=== PATIENT | female | born 1935 | race Caucasian/White ===

== ENCOUNTER 2017-05-04 15:24 | Inpatient (IN) | payer OTHER ==
--- NOTE | 2017-05-04 16:03 | EDPHY ---
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 The patient's symptoms began after she tumbled while weeding at home. The patient did not strike her head or lose consciousness. She has no complaints neck pain, back pain, chest pain or difficulty breathing. The patient denies any focal numbness or weakness. The patient denies any acute abdominal pain. The patient is not anticoagulated. The patient has moderate to severe pain with movement. REVIEW OF SYSTEMS: A comprehensive 10 point review of systems is otherwise negative aside from elements mentioned in the history of present illness. Source: Patient - Personal History Current Tetanus/Diphtheria Vaccine: Unsure Current Tetanus Diphtheria and Acellular Pertussis (TDAP): Unsure - Medical/Surgical History Hx Asthma: No Hx Chronic Respiratory Disease: No Hx Diabetes: No Hx Cardiac Disease: No Hx Renal Disease: No Hx Cirrhosis: No Hx Alcoholism: No Hx HIV/AIDS: No Hx Splenectomy or Spleen Trauma: No Other PMH: hyperlipidemia. hypothyroid - Social History Smoking Status: Never smoked - Physical Exam Exam: General Appearance: Alert, moderate discomfort secondary to pain Head: Atraumatic Eyes: Pupils equal, round, reactive ENT, Mouth: No hemotympanum, no oral trauma Neck: Nontender, trachea midline Respiratory: No chest wall tender, subcutaneous air, lungs clear bilaterally Cardiovascular: Regular rate and rhythm Abdomen: Abdomen is soft and nontender, pelvis stable Skin: No lacerations, No abrasion Back: No midline T/L/S pain Extremities: Tenderness to palpation right elbow, right wrist right shoulder Neurological: A&Ox3, normal motor function, normal sensory exam Constitutional: Initial Vital Signs Temperature (C) 36.5 C 05/04/17 15:31 Heart Rate 81 05/04/17 15:31 Respiratory Rate 16 05/04/17 15:31 Blood Pressure 130/68 H 05/04/17 15:31 O2 Sat (%) 96 05/04/17 15:31 O2 Delivery Mode Room Air Allergies/Adverse Reactions: No Known Allergies Allergy (Unverified 05/04/17 15:30) Home Medications: Medication Instructions Recorded Levothyroxine [Synthroid 50 mcg 50 mcg PO DAILY06 05/04/17 (*)] Lisinopril [Zestril 30 mg] 30 mg PO DAILY 05/04/17 Simvastatin 40 mg PO HS 05/04/17 Vitamin B Complex [B Complex] 1 each PO DAILY@12 05/04/17 Medical Decision Making - Diagnostics Imaging Results: Imaging Impressions Elbow X-Ray 05/04/17 15:58 Impression: 1. Suspicious of a slight impaction type fracture involving the lateral aspect of the radial head-neck junction. Clinical correlation and follow-up are suggested. 2. Bone demineralization. Wrist X-Ray 05/04/17 15:58 Impression: Acute Colles' fracture of the distal radius with ulnar styloid fracture, and diffuse bone demineralization. Shoulder X-Ray 05/04/17 15:59 Impression: Acute fracture involving the surgical neck of the proximal right humerus. Wrist X-Ray 05/04/17 17:22 Impression: Status post closed reduction with significant improvement in alignment of the distal radial Colles' fracture, compared to 4:27 PM today. Procedures: Procedure fracture reduction DISTAL RADIUS/ULNA FRACTURE REDUCTION Procedure: Reduction of Angulated Displaced distal radius and ulna fracture. Time-out completed immediately before the procedure. IV established. O2 administered. Neurovascular exam intact pre-procedure. Given a hematoma block and IV fentanyl for analgesia. The right distal radius and ulna fracture was reduced using traction and dorsal pressurevolar pressure.Reassessed post- procedure. Neurovascular status intact-Normal Motor and sensory exam. Exam indicated reduction. Confirmed reduction on X-ray. Ortho glass sugar-tong splint applied by myself. The procedure was performed by myself, Jose Antonio Luna ED Course/Re-evaluation: The patient had an IV established. She received a total of 100 mcg of IV fentanyl for management of severe pain. The patient is noted to have a displaced surgical neck fracture of the right humerus, she has an impacted radial head fracture. She has a comminuted angulated distal radius and ulna fracture. The patient was verbally consented to undergo reduction of the distal radius ulna fracture by myself at 5:24 p.m.. This was performed after she received hematoma block. The patient did have improvement her distal radius fracture. The patient required additional IV narcotics for pain management. She will require admission to the hospital for ongoing pain management. She currently is having moderate to severe pain. She continues to be neurologically intact. Consultation was made with Dr. Lane from Orthopedic surgery. He will see the patient in orthopedic consultation. Consultation was made with Dr. Reina Whitehead from the hospitalist service who will admit the patient. 6:00 p.m.: Patient will be transferred to the medical-surgical floor for further care. Differential Diagnosis: Differential diagnosis considered includes fracture, sprain, dislocation, neurovascular injury - Data Points Medications Given: Discontinued Medications Fentanyl (Sublimaze) 50 mcg IVP EDNOW ONE Stop: 05/04/17 16:11 Last Admin: 05/04/17 16:28 Dose: 50 mcg Fentanyl (Sublimaze) 50 mcg IVP EDNOW ONE Stop: 05/04/17 16:29 Last Admin: 05/04/17 16:00 Dose: 50 mcg Morphine Sulfate (Morphine) 4 mg IVP EDNOW ONE Stop: 05/04/17 17:43 Last Admin: 05/04/17 17:45 Dose: 4 mg Ondansetron HCl (Zofran) 4 mg IVP ONCE ONE Stop: 05/04/17 17:43 Last Admin: 05/04/17 17:45 Dose: 4 mg Departure - Departure Disposition: [facility] Acute Clinical Impression: Distal radius fracture, right Qualifiers: Encounter type: initial encounter Fracture type: closed Fracture morphology: Colles' Qualified Code(s): S52.531A - Colles' fracture of right radius, initial encounter for closed fracture Comminuted right humeral fracture Qualifiers: Encounter type: initial encounter Humerus Location: shaft Fracture type: closed Fracture alignment: nondisplaced Qualified Code(s): S42.354A - Nondisplaced comminuted fracture of shaft of humerus, right arm, initial encounter for closed fracture Right radial head fracture Qualifiers: Encounter type: initial encounter Fracture type: closed Fracture alignment: nondisplaced Qualified Code(s): S52.124A - Nondisplaced fracture of head of right radius, initial encounter for closed fracture Condition: Good
[2017-05-04] MEDS ORDERED: fentaNYL 100 MCG/2 ML INJ IVP ONE ×2 (16:10→16:28)
[2017-05-04] MEDS ORDERED: ONDANSETRON 4 MG/2 ML VIAL IVP ONE (17:42)
[2017-05-04] MEDS ORDERED: ONDANSETRON 4 MG/2 ML VIAL ONE (17:43)
[2017-05-04] MEDS ORDERED: ACETAMINOPHEN 325 MG TAB PO PRN (18:54)
[2017-05-04] MEDS ORDERED: diphenhydrAMINE 25 MG CAP PO PRN (18:54)
[2017-05-04] MEDS ORDERED: ONDANSETRON 4 MG/2 ML VIAL IVP PRN (18:54)
[2017-05-04] MEDS ORDERED: PROMETHAZINE HCL 25 MG/ML INJ IVP PRN (18:54)
[2017-05-04 19:42] LABS: % IMMATURE GRANULYOCYTES 0.4 % (0.0-1.1); ABSOLUTE IMMATURE GRANULOCYTES 0.03 10^3/uL (0.00-0.10); ADD DIFF? NO; ADD MORPH? NO; ADD SCAN? NO; ATYPICAL LYMPHOCYTE FLAG 10 (0-99); FRAGMENT RBC FLAG 0 (0-99); HEMATOCRIT 36.9 % (38.0-47.0); HEMOGLOBIN 12.3 g/dL (12.6-16.3); LEFT SHIFT FLG 0 (0-99); LIPEMIA HEMOLYSIS FLAG 80 (0-99); MEAN CELL HEMOGLOBIN CONCENTR. 33.3 g/dL (32.4-36.7); MEAN CELL VOLUME 92.9 fL (81.5-99.8); MEAN PLATELET VOLUME 10.8 fL (8.7-11.7); PLATELET CLUMPS FLAG 0 (0-99); PLATELET COUNT 179 10^3/uL (150-400); RED BLOOD CELL COUNT 3.97 10^6/uL (4.18-5.33); RED CELL DISTRIBUTION WIDTH 13.2 % (11.5-15.2)
[2017-05-04 19:51] LABS: APTT 23.2 SEC (23.0-38.0); INR 1.05 (0.83-1.16); PROTIME(PATIENT) 13.6 SEC (12.0-15.0)
--- NOTE | 2017-05-04 19:53 | PDGENHP ---
History and Physical - Chief Complaint fall/arm pain - History of Present Illness 81 yo F with PMH of HTN, HLD and hypothyroid presenting after a fall while gardening. She notes that she was leaning forward to pull out some weeds when she lost her balance and fell onto her right arm and had immediate shoulder, wrist and elbow pain. She did not hit her head or have any neck pain afterwards. She noted her wrist seemed to be pointing in the wrong direction from the rest of her arm. She is right handed. She had a prior injury to her left wrist that did not require surgery but took 5 months of PT to completely heal from. She has otherwise been well without any acute issues recently. History Information - Allergies/Home Medication List Allergies/Adverse Reactions: No Known Allergies Allergy (Unverified 05/04/17 15:30) Home Medications: Levothyroxine [Synthroid 50 mcg (*)] 50 mcg PO DAILY06 05/04/17 [Last Taken ] Lisinopril [Zestril 30 mg] 30 mg PO DAILY 05/04/17 [Last Taken 05/04/17] Simvastatin 40 mg PO HS 05/04/17 [Last Taken 05/03/17] Vitamin B Complex [B Complex] 1 each PO DAILY@12 05/04/17 [Last Taken 05/04/17] I have personally reviewed and updated: family history, medical history, social history, surgical history - Past Medical History hypertension, hyperlipidemia Additional medical history: hypothyroid. previous hyperparathyroid - Surgical History Reports: hysterectomy Additional surgical history: thyroid resection - Family History Positive for: non-pertinent - Social History Smoking Status: Never smoked Alcohol Use: None Drug Use: None Additional social history: , lives with her Review of Systems ROS: 10pt was reviewed & negative except for what was stated in HPI & below Physical Exam Temp Pulse Resp BP Pulse Ox 37.0 C 73 16 134/82 H 96 05/04/17 18:20 05/04/17 18:20 05/04/17 18:20 05/04/17 18:20 05/04/17 18:20 Constitutional: no apparent distress, appears nourished Eyes: PERRL Ears, Nose, Mouth, Throat: moist mucous membranes Cardiovascular: regular rate and rhythym, no murmur, rub, or gallop Respiratory: no respiratory distress, no rales or rhonchi Gastrointestinal: soft, non-tender abdomen Skin: warm, normal color Musculoskeletal: other (right arm in a cast and sling) Neurologic: AAOx3 Psychiatric: interacting appropriately, not anxious, not encephalopathic Lab Data & Imaging Review 05/04/17 16:05 05/04/17 16:05 WBC 7.75 10^3/uL (3.80-9.50) 05/04/17 16:05 RBC 3.97 10^6/uL (4.18-5.33) L 05/04/17 16:05 Hgb 12.3 g/dL (12.6-16.3) L 05/04/17 16:05 Hct 36.9 % (38.0-47.0) L 05/04/17 16:05 MCV 92.9 fL (81.5-99.8) 05/04/17 16:05 MCH 31.0 pg (27.9-34.1) 05/04/17 16:05 MCHC 33.3 g/dL (32.4-36.7) 05/04/17 16:05 RDW 13.2 % (11.5-15.2) 05/04/17 16:05 Plt Count 179 10^3/uL (150-400) 05/04/17 16:05 MPV 10.8 fL (8.7-11.7) 05/04/17 16:05 Neut % (Auto) 63.6 % (39.3-74.2) 05/04/17 16:05 Lymph % (Auto) 28.5 % (15.0-45.0) 05/04/17 16:05 [place] % (Auto) 4.8 % (4.5-13.0) 05/04/17 16:05 Eos % (Auto) 1.3 % (0.6-7.6) 05/04/17 16:05 Baso % (Auto) 1.4 % (0.3-1.7) 05/04/17 16:05 Nucleat RBC Rel Count 0.0 % (0.0-0.2) 05/04/17 16:05 Absolute Neuts (auto) 4.93 10^3/uL (1.70-6.50) 05/04/17 16:05 Absolute Lymphs (auto) 2.21 10^3/uL (1.00-3.00) 05/04/17 16:05 Absolute Monos (auto) 0.37 10^3/uL (0.30-0.80) 05/04/17 16:05 Absolute Eos (auto) 0.10 10^3/uL (0.03-0.40) 05/04/17 16:05 Absolute Basos (auto) 0.11 10^3/uL (0.02-0.10) H 05/04/17 16:05 Absolute Nucleated RBC 0.00 10^3/uL (0-0.01) 05/04/17 16:05 Immature Gran % 0.4 % (0.0-1.1) 05/04/17 16:05 Immature Gran # 0.03 10^3/uL (0.00-0.10) 05/04/17 16:05 Visualized and Interpreted imaging results: Yes Interpretation: wrist xray: colles fx angulated and displaced. shoulder xray: right proximal humeral fx involving surgical neck. elbow xray: ? impaction fx of radial head-neck jxn Assessment & Plan Assessment: Distal radius fracture, right (Acute) Comminuted right humeral fracture (Acute) Right radial head fracture (Acute) 81 yo F with PMH of htn, hld, hypothyroid pw right shoulder, wrist and ? elbow fxs s/p mechanical fall # right proximal humerus and ? right radial head-neck fx: currently patient in a sling and soft cast. Neurovascularly intact. Ortho consulted and have requested RUE CT. This is felt to be unlikely a surgical injury, however if CT differs from that impression is to be determined. Dr. Lane to see patient in am. # right angulated/displaced colle's fracture: s/p external reduction in ER, in cast now, f/u xray shows it to be reduced appropriately # HTN: continue op mgmt with lisinopril # hld: continue statin # hypothyroid: post surgical, continue synthroid # observation status, suspect she will require < 48 hours stay for eval/mgmt of above Patient new to my care. Old records reviewed and summarized as above. Care plan reviewed with ER doc including ortho consultation.
[2017-05-04 20:06] LABS: ANION GAP 10 mEq/L (8-16); CALCIUM 9.1 mg/dL (8.5-10.4); CARBON DIOXIDE 23 mEq/l (22-31); CHLORIDE 106 mEq/L (97-110); CREATININE 0.9 mg/dL (0.6-1.0); GLOMERULAR FILTRATION RATE > 60; GLUCOSE 151 mg/dL (70-100); SODIUM 139 mEq/L (134-144)
--- NOTE | 2017-05-04 21:59 | GCON ---
[f rep st] CONSULTATION DATE OF CONSULTATION: 05/04/2017 HISTORY OF PRESENT ILLNESS: This is a 81-year-old female who fell while gardening. She sustained a proximal humerus, nondisplaced radial head and displaced distal radius fracture. She was taken by EMS. Emergency room diagnosed the above injuries and admitted to the hospitalist service, and I was consulted to see her. She complained of shoulder and wrist and elbow pain, but no other pain. She was able to ambulate in the hospital. PAST MEDICAL HISTORY: Hypertension, hyperlipidemia. ALLERGIES: No known drug allergies. MEDICATIONS: Synthroid, lisinopril, simvastatin. SURGICAL HISTORY: Hysterectomy, and thyroid resection. FAMILY HISTORY: Reviewed and noncontributory. SOCIAL HISTORY: She is a nonsmoker. REVIEW OF SYSTEMS: 10-point review of systems performed, is otherwise negative. PHYSICAL EXAMINATION: VITAL SIGNS: Stable. GENERAL: She is conscious. She is alert, oriented, and appropriate. In no acute distress. HEAD: Atraumatic. EYES: Equal and reactive. NECK: Supple. FACE: Atraumatic. CARDIOVASCULAR : Regular rate and rhythm. RESPIRATORY: No distress. GASTROINTESTINAL: Her abdomen is soft. EXTREMITIES: Right upper extremity is in a sling and splinted. She is splinted at the wrist. She is able to move her fingers. She is quite swollen and sore in the shoulder. She has numbness in the axillary nerve distribution. She has tenderness about the elbow and hand. Her left upper extremity she moves well with no neurologic abnormalities, good strength. Lower extremities move well. There is no pain. No pain with hip rotation. IMAGING: Reviewed her plain films. She has displaced proximal humerus fracture , which is shortened and impacted. She has a displaced distal radius fracture which was improved on the postreduction x-rays; it was still dorsally angulated significantly. ASSESSMENT: 1. Right proximal humerus fracture. 2. Right distal radius fracture. 3. Nondisplaced right radial head fracture. PLAN: I discussed with her risks and benefits of operative intervention versus nonsurgical treatment. We would like for operative intervention based on her otherwise very good health, active lifestyle, and the displaced nature of her fractures for quick recovery and better long-term function. Will plan on ORIF of the right proximal humerus and the right distal radius. Will treat the radial head fracture nonoperatively. She will be put n.p.o. at midnight. Discussed surgical procedure details with her, including risks of nerve injury, nonunion, malunion, continued pain, wound problems. /[id number]/MODL MTDD
[2017-05-05] MEDS: oxyCODONE IR 5 MG TAB PO PRN ×5 (00:26→16:03)
[2017-05-05] MEDS: ONDANSETRON DISINTEGRATING 4 MG TAB PO PRN ×2 (00:27→04:11)
[2017-05-05] MEDS ORDERED: BUPIVACAINE/EPI 0.25% 30 ML SDV ONE ×2 (07:46→11:17)
[2017-05-05] MEDS ORDERED: POLYMYXIN B SULFATE 500,000 UNIT/10 ML SYR IRR ONE (07:46)
[2017-05-05] MEDS ORDERED: BACITRACIN 50,000 UNITS/10 ML SYR IRR ONE (07:47)
[2017-05-05] MEDS ORDERED: BUPIVACAINE 0.5% 30 ML SDV ONE (07:48)
[2017-05-05] MEDS ORDERED: ceFAZolin 2 GM/DEXTROSE 100 ML IV ONE (08:58)
[2017-05-05] MEDS ORDERED: NON-FORMULARY NEW DRUG (Lisinopril [Zestril 30 Mg] 30 MG) PO SCH (09:00)
[2017-05-05] MEDS ORDERED: ENOXAPARIN 40 MG/0.4 ML SYR SC SCH (09:00)
--- NOTE | 2017-05-05 09:01 | SOAPPROG ---
[facility] Progress Note Assessment/Plan: Assessment: R proximal humerus fracture R distal radius fracture Plan: ORIF of R proximal humerus fracture R distal radius fracture informed consent obtained 05/05/17 08:59 Subjective: pain in right arm Objective: Vital Signs Temp Pulse Resp BP Pulse Ox 37.0 C 88 16 141/76 H 93 05/05/17 07:41 05/05/17 07:41 05/05/17 07:41 05/05/17 07:41 05/05/17 07:41 05/04/17 05/05/17 05/06/17 05:59 05:59 05:59 Intake Total 0 Balance 0 PT 13.6 SEC (12.0-15.0) 05/04/17 16:05 INR 1.05 (0.83-1.16) 05/04/17 16:05 swelling in splint ICD10 Worksheet Patient Problems: Problems Problem Status Onset Comminuted right humeral fracture Acute Distal radius fracture, right Acute Right radial head fracture Acute
[2017-05-05] MEDS ORDERED: fentaNYL 100 MCG/2 ML INJ IVP PRN ×2 (09:09→12:32)
[2017-05-05] MEDS ORDERED: CEFAZOLIN 2 GM/DEXTROSE/100 ML BAG IV ONE (09:09)
[2017-05-05] MEDS ORDERED: fentaNYL 100 MCG/2 ML INJ ONE ×3 (09:10→12:27)
--- NOTE | 2017-05-05 09:50 | PDANEPAE ---
ANE History of Present Illness 81 year old with prox humerus fx, wrist fx right side ANE Past Medical History - Cardiovascular History Hx Hypertension: Yes - Pulmonary History Hx Oxygen in Use at Home: No - Endocrine History Hx Diabetes: No Hypothyroid: Yes ANE Review of Systems Review of systems is: negative ANE Patient History - Allergies Allergies/Adverse Reactions: No Known Allergies Allergy (Unverified 05/04/17 15:30) - Home Medications Home Medications: Levothyroxine [Synthroid 50 mcg (*)] 50 mcg PO DAILY06 05/04/17 [Last Taken ] Lisinopril [Zestril 30 mg] 30 mg PO DAILY 05/04/17 [Last Taken 05/04/17] Simvastatin 40 mg PO HS 05/04/17 [Last Taken 05/03/17] Vitamin B Complex [B Complex] 1 each PO DAILY@12 05/04/17 [Last Taken 05/04/17] - NPO status NPO Since - Liquids (Date): 05/05/17 NPO Since - Liquids (Time): 06:30 NPO Since - Solids (Date): 05/04/17 NPO Since - Solids (Time): 20:00 - Anes Hx Anes Hx: no prior problems - Smoking Hx Smoking Status: Never smoked - Alcohol Use Alcohol Use: None ANE Labs/Vital Signs - Labs Result Diagrams: 05/04/17 16:05 05/04/17 16:05 - Vital Signs Blood Pressure: 141/76 Heart Rate: 88 Respiratory Rate: 16 O2 Sat (%): 93 Height: 170.18 cm Weight: 68.039 kg ANE Physical Exam - Airway Neck exam: FROM Mallampati Score: Class 1 Mouth exam: normal dental/mouth exam - Pulmonary Pulmonary: no respiratory distress - Cardiovascular Cardiovascular: regular rate and rhythym - ASA Status ASA Status: II ANE Anesthesia Plan Anesthesia Plan: general endotracheal anesthesia
[2017-05-05] MEDS ORDERED: PROPOFOL 200 MG/20 ML VIAL ONE (10:02)
[2017-05-05] MEDS ORDERED: PHENYLEPHRINE HCL 100 MCG/ML SYR ONE (10:20)
[2017-05-05] MEDS ORDERED: NALOXONE HCL 0.4 MG/ML INJ IVP PRN (11:54)
[2017-05-05] MEDS ORDERED: VITAMIN B COMPLEX 1 EA CAP/TAB PO SCH (12:00)
--- NOTE | 2017-05-05 12:16 | POSTOPPROG ---
Post Op Note Date of Operation: 05/05/17 Surgeon: Jerry Lane Marine Consultant: Thai Anesthesiologist: Warm Anesthesia: GET(General Endotracheal) Pre-op Diagnosis: R prox humerus fx, distal radius fracture, radial head fracture Post-op Diagnosis: same Indication: above Procedure: ORIF R prox humerus, distal radius, closed treatment of radial head fractur Inf/Abcess present in the surg proc area at time of surgery?: No EBL: 50-100
[2017-05-05] MEDS ORDERED: HYDROmorphONE/DILAUDID 1 MG/ML SYR IVP PRN (12:33)
[2017-05-05] MEDS ORDERED: HYDROmorphONE/DILAUDID 2 MG/ML INJ ONE (12:37)
[2017-05-05] MEDS: VITAMIN B COMPLEX 1 EA CAP/TAB PO SCH (13:23)
[2017-05-05] MEDS: LISINOPRIL 20 MG TAB PO SCH (13:26)
--- NOTE | 2017-05-05 13:40 | HOSPPROG ---
Hospitalist Progress Note Assessment/Plan: Distal radius fracture, right (Acute) Comminuted right humeral fracture (Acute) Right radial head fracture (Acute) 81 yo F with PMH of htn, hld, hypothyroid pw right shoulder, wrist and ? elbow fxs s/p mechanical fall first encounter, chart reviewed. # right proximal humerus and ? right radial head-neck fx: To OR today # right angulated/displaced colle's fracture: s/p external reduction in ER # HTN: continue op mgmt with lisinopril # hld: continue statin # hypothyroid: post surgical, continue synthroid # Change to inpt status. Will need to be in hospital for further workup Subjective: Tired in the post op setting. Pain controlled. No issues. Objective: Vital Signs Temp Pulse Resp BP Pulse Ox 36.5 C 88 15 137/67 H 96 05/05/17 13:25 05/05/17 09:53 05/05/17 13:25 05/05/17 13:16 05/05/17 13:25 05/04/17 05/05/17 05/06/17 05:59 05:59 05:59 Intake Total 0 1250 Output Total 125 Balance 0 1125 PT 13.6 SEC (12.0-15.0) 05/04/17 16:05 INR 1.05 (0.83-1.16) 05/04/17 16:05 - Physical Exam Constitutional: no apparent distress, appears nourished, uncomfortable Eyes: PERRL, anicteric sclera, EOMI Ears, Nose, Mouth, Throat: moist mucous membranes, hearing normal, ears appear normal Cardiovascular: regular rate and rhythym, No JVD, No edema Respiratory: no respiratory distress, no rales or rhonchi, reduced air movement Gastrointestinal: No tenderness, No ascites, No guarding Skin: warm, normal color, No erythema Musculoskeletal: joint tenderness, pain with ROM, generalized weakness Psychiatric: interacting appropriately, not anxious, poor insight, poor judgement, poor memory ICD10 Worksheet Patient Problems: Problems Problem Status Onset Distal radius fracture, right Acute Comminuted right humeral fracture Acute Right radial head fracture Acute
[2017-05-05] MEDS ORDERED: traMADol 50 MG TAB PO PRN (14:01)
--- NOTE | 2017-05-05 14:36 | GOP ---
[f rep st] OPERATIVE REPORT DATE OF OPERATION: 05/05/2017 SURGEON: Jerry Lane MD GERIATRIC CARE MANAGER: Rafita Andre SA. ANESTHESIA: General. PREOPERATIVE DIAGNOSIS: 1. Right proximal humerus fracture, 3 part. 2. Right 2-part distal radius fracture. 3. Right nondisplaced radial head fracture. POSTOPERATIVE DIAGNOSIS: 1. Right proximal humerus fracture, 3 part. 2. Right 2-part distal radius fracture. 3. Right nondisplaced radial head fracture. PROCEDURE PERFORMED: 1. Open reduction and internal fixation, right 3-part proximal humerus fracture. Implants are Synt hes proximal humerus plate with locking and nonlocking screws. 2. Open reduction and internal fixation, right distal radius fracture. Implants are Synthes distal radius locking plate with locking and nonlocking screws. FINDINGS: SPECIMENS: None. ESTIMATED BLOOD LOSS: 200 mL total. INDICATIONS: This is a 81-year-old female who fell while gardening, sustaining the above-mentioned fractures, and she sustained a proximal humerus fracture, nondisplaced right radial head fracture, a nd distal radius displaced fracture. I obtained radiographic studies of these and counseled on the risks and benefits of operative intervention for these given her active lifestyle, the significant d isplacement of the fracture, the likelihood of further displacement of the distal radius given its u nstable nature, and she elected to proceed. We discussed risks of nerve injury, blood loss, pain, w ound problems, stiffness. She elected to proceed. Informed consent was obtained. All questions we re answered and marked preoperatively. DESCRIPTION OF PROCEDURE: She was taken to the operative suite. She was positioned in a beach christelle r. All bony prominences were padded. Sterilely prepped and draped in normal fashion. Time-out was performed, verifying site, side, location. All in agreement as a team. I made an incision over the anterior proximal humerus, performed deltopectoral approach to protect n eurovascular structures, working through this interval, and then mobilizing the deltoid. Exposed th e fracture site. Her fracture site was grossly shortened, impacted, and was severely angulated at a pproximately 70 degrees. She also had a greater tuberosity fracture. I was able to pull this out t o length with manual traction and manipulation of the fragments. Then I did place some greater tube rosity sutures in the rotator cuff to help reduce this as well. I placed a plate on this, used a co rtical screw to bring this to bone distally, then placed locking screws proximally, and then placed another cortical screw distally, achieving good fixation. I then tied the rotator cuff to the plate , took final x-rays showing good fixation, good alignment, stable construct, and that the screws wer e not in the joint, and took multiple views as well as did live fluoroscopy. The wound was thoroughly irrigated, closed with 0 Vicryl, 2-0 Vicryl, 3-0 Quill, and Dermabond. She was placed in a sterile dressing. I then repositioned the patient supine with her arm flat out and placed a tourniquet. Using Esmarch exsanguination, began the second portion of the case. Made an i ncision over the distal radius and over the FCR tendon, worked through the FCR tendon sheath, protec ting neurovascular structures. I elevated off the pronator quadratus and exposed the fracture site, which was grossly displaced and angulated. I manipulated this and obtained reduction. I was then able to place a plate on this and bring the plate with cortical screws in the shaft to the bone. I held the wrist in a flexed position in reduction, placed locking screws distally to hold this constr uct, and then placed a cortical screw proximally and another locking screw proximally to hold this a s a rigid construct. Took it through range of motion and this was stable. Fluoroscopic images obta ined, which showed good fixation and good plate placement. She was then closed with 2-0 Vicryl, 3-0 Quill, and Dermabond, placed in a splint. She was taken to PACU in stable condition. DRAINS: None. CONDITION: Stable. /[id number]/MODL
[2017-05-05] MEDS ORDERED: NON-FORMULARY NEW DRUG (Simvastatin [Simvastatin] 40 MG) PO SCH (21:00)
[2017-05-05] MEDS ORDERED: ATORVASTATIN CALCIUM 20 MG TAB PO SCH (21:00)
[2017-05-06] MEDS: oxyCODONE IR 5 MG TAB PO PRN ×2 (00:09→05:37)
[2017-05-06] MEDS: ONDANSETRON DISINTEGRATING 4 MG TAB PO PRN ×2 (00:09→05:37)
[2017-05-06] MEDS ORDERED: LEVOTHYROXINE 50 MCG TAB PO SCH (06:00)
--- NOTE | 2017-05-06 08:06 | SOAPPROG ---
[facility] Progress Note Assessment/Plan: Assessment: R proximal humerus fracture R distal radius fracture Plan: s/p ORIF of R proximal humerus fracture R distal radius fracture 1 lbs wt limit RUE stay in splint stay in dressing may get shoulder dressing wet d/c from my standpoint they have my card to make f/u appt on fir 05/06/17 08:05 Subjective: pain better Objective: Vital Signs Temp Pulse Resp BP Pulse Ox 37.0 C 81 18 110/53 L 96 05/06/17 04:00 05/06/17 04:00 05/06/17 04:00 05/06/17 04:00 05/06/17 04:00 05/05/17 05/06/17 05/07/17 05:59 05:59 05:59 Intake Total 850 Output Total 1000 Balance -150 PT 13.6 SEC (12.0-15.0) 05/04/17 16:05 INR 1.05 (0.83-1.16) 05/04/17 16:05 moving fingers well ICD10 Worksheet Patient Problems: Problems Problem Status Onset Comminuted right humeral fracture Acute Distal radius fracture, right Acute Right radial head fracture Acute
[2017-05-06 08:31] VITALS: RESP 16
--- NOTE | 2017-05-06 08:36 | HOSPPROG ---
Hospitalist Progress Note Assessment/Plan: 81 yo F with PMH of htn, hld, hypothyroid who had a mechanical fall and sustained a humerus and radial fx. Today is my first encounter w the patient/ chart reviewed. # right proximal humerus fx, distal radius fx, radial head fx -s/p ORIF right proximal humerus, distal radius #nausea having persistent nausea w pain meds will try another one to see if this helps # HTN: - lisinopril -bp 110/53 # hld: statin # hypothyroid: -Synthroid # dispo: will await input from PT and OT, trial of another medication for pain. Subjective: Savita is c/o some nausea during my evaluation. Objective: Vital Signs Temp Pulse Resp BP Pulse Ox 37.0 C 81 18 110/53 L 96 05/06/17 04:00 05/06/17 04:00 05/06/17 04:00 05/06/17 04:00 05/06/17 04:00 05/05/17 05/06/17 05/07/17 05:59 05:59 05:59 Intake Total 850 Output Total 1000 Balance -150 PT 13.6 SEC (12.0-15.0) 05/04/17 16:05 INR 1.05 (0.83-1.16) 05/04/17 16:05 - Physical Exam Constitutional: no apparent distress, appears nourished Eyes: PERRL Ears, Nose, Mouth, Throat: hearing normal Cardiovascular: regular rate and rhythym Respiratory: no respiratory distress Gastrointestinal: normoactive bowel sounds Skin: warm Musculoskeletal: muscular tenderness Neurologic: AAOx3 Psychiatric: interacting appropriately ICD10 Worksheet Patient Problems: Problems Problem Status Onset Comminuted right humeral fracture Acute Distal radius fracture, right Acute Right radial head fracture Acute
[2017-05-06] MEDS: LISINOPRIL 20 MG TAB PO SCH (09:41)
[2017-05-06] MEDS: HYDROCODONE/APAP 5/325 TAB PO PRN ×2 (10:37→15:15)
[2017-05-06 12:19] VITALS: BP 107/60; PULSE 91; TEMP 98.5; O2SAT 93
[2017-05-06] MEDS: VITAMIN B COMPLEX 1 EA CAP/TAB PO SCH (14:02)
--- NOTE | 2017-05-06 14:04 | PDIAF ---
- Diagnosis Diagnosis: right proximal humerus fx, distal radius fx s/p repair Code Status: Full Code - Medication Management Discharge Medications: Medications to Continue on Transfer Levothyroxine [Synthroid 50 mcg (*)] 50 mcg PO DAILY06 05/04/17 [Last Taken ] Lisinopril [Zestril 30 mg] 30 mg PO DAILY 05/04/17 [Last Taken 05/04/17] Simvastatin 40 mg PO HS 05/04/17 [Last Taken 05/03/17] Vitamin B Complex [B Complex] 1 each PO DAILY@12 05/04/17 [Last Taken 05/04/17] Hydrocodone/APAP 5/325 [[place] 5/325 (*)] 1 - 2 tab PO Q4HRS PRN #30 tab [Last Taken Unknown] Discharge Medications: Refer to the Discharge Home Medication list for PRN reason. - Orders Services needed: Physical Therapy, Occupational Therapy Diet Recommendation: no restrictions on diet Diet Texture: Regular Texture Diet Activity/Weight Bearing Restrictions: 1 lb weight limit to rue, stay in splint - Follow Up Care Current Providers and Referrals: Awa Dumont MD [Primary Care Provider] - As per Instructions Jerry Lane MD [Medical Doctor] - 3-5 days
--- NOTE | 2017-05-06 16:39 | GDS ---
[f rep st] DISCHARGE SUMMARY DISCHARGE DIAGNOSES: 1. Right proximal humerus fracture, distal radius fracture, and radial head fracture. 2. Nausea. 3. Hypertension. 4. Hyperlipidemia. 5. Hypothyroidism. CONSULTATIONS: During her stay: Dr. Jerry Lane. HISTORY OF PRESENT ILLNESS: Briefly, the patient is a 81-year-old female, who presented after falli ng while she was doing her gardening. She was leaning forward to pull some weeds out when she lost her balance, and fell onto her right arm, and had immediate shoulder, wrist, and elbow pain. She di d not hit her head. She was evaluated by Dr. Lane, and had surgery on May 05. She had an open reduction, internal fixation of the right three-part proximal humerus fracture. She also had an op en reduction, internal fixation of the right distal fracture. She tolerated the procedure well. To day, she has some ongoing nausea this morning due to pain medications. Her pain medications have be en changed, and she is doing markedly better. She will follow up with Dr. Lane in the outpatient setting. HOSPITAL COURSE: 1. Right proximal humerus fracture, distal radius fracture, and radial head fracture. She is statu s post ORIF, is doing well. 2. Nausea, resolved with changing her pain medications. 3. Hypertension, on lisinopril. 4. Hyperlipidemia, on statin therapy. 5. Hypothyroidism, on Synthroid. CONDITION AT DISCHARGE: VITAL SIGNS: Stable. Blood pressure is 110/53, O2 saturations on room air 96%, respiratory rate is 18, pulse is 81, temperature is 37 degrees Celsius. MEDICATIONS AT DISCHARGE: Please see the EMR. DISCHARGE INSTRUCTIONS: 1. To follow up with Dr. Lane. 2. A 1-pound weightbearing limit to her right upper extremity. 3. Do not drink or drive while on the pain medications. 4. She is to stay on stool softeners while she is on the pain medications. Greater than 30 minutes discharging and coordinating care. /[id number]/MODL
== END 2017-05-06 15:40 | disposition home health service (06) | DRG 493 ==
LOC: F3N 18:10 → OBSVTOIN 05-05 13:37
PROVIDERS: ADMIT Internal Medicine; ATTEND Internal Medicine
PROC: 0PSF04Z Reposition Right Humeral Shaft with Internal Fixation Device, Open Approach (ICD-10-PCS; principal; 2017-05-05 08:00)
PROC: 0PSH04Z Reposition Right Radius with Internal Fixation Device, Open Approach (ICD-10-PCS; principal; 2017-05-05 08:00)
PROC: 0PSKXZZ Reposition Right Ulna, External Approach (ICD-10-PCS; 2017-05-05 08:00)
PROC: 0PSHXZZ Reposition Right Radius, External Approach (ICD-10-PCS; 2017-05-05 08:00)
DX: S42.231A 3-part fracture of surgical neck of right humerus, initial encounter for closed fracture (principal); S52.531A Colles' fracture of right radius, initial encounter for closed fracture; S52.614A Nondisplaced fracture of right ulna styloid process, initial encounter for closed fracture; S52.124A Nondisplaced fracture of head of right radius, initial encounter for closed fracture; I10 Essential (primary) hypertension; E78.5 Hyperlipidemia, unspecified; E03.9 Hypothyroidism, unspecified; W01.0XXA Fall on same level from slipping, tripping and stumbling without subsequent striking against object, initial encounter; Y92.017 Garden or yard in single-family (private) house as the place of occurrence of the external cause
CPT/HCPCS: 97161-GP; 97165-GO; C1713; G0378; G8978-GP-CI; G8979-GP-CI; G8980-GP-CI; G8987-GO-CI; G8988-GO-CI; J0690; J1170; J2370; J2405; J2704; J3010

== ENCOUNTER → 2017-10-15 | Outpatient (CLI) | payer OTHER | LOC: BMCIMAGING 11:05 | PROVIDERS: ATTEND Internal Medicine | DX: Z13.820 Encounter for screening for osteoporosis (principal); M81.8 Other osteoporosis without current pathological fracture ==

== ENCOUNTER → 2018-12-09 | Outpatient (CLI) | payer OTHER | LOC: BMCIMAGING 12:28 | PROVIDERS: ATTEND Internal Medicine | DX: Z12.31 Encounter for screening mammogram for malignant neoplasm of breast (principal) ==